=== PATIENT | female | born 1950 | race Caucasian/White ===

== ENCOUNTER 2023-06-30 14:32 | Outpatient (CLI) | payer MEDICARE, OTHER, SELFPAY | END 2023-06-30 23:59 | LOC: LAB.DROPOF 14:33 | PROVIDERS: PCP Family Medicine; Visit Provider Internal Medicine Pulmonary Disease | DX: R84.5 Abnormal microbiological findings in specimens from respiratory organs and thorax (principal); B96.89 Other specified bacterial agents as the cause of diseases classified elsewhere | CPT/HCPCS: 87070; 87205 ==

== ENCOUNTER 2023-07-10 06:56 | Outpatient (CLI) | payer MEDICARE, OTHER, SELFPAY ==
--- NOTE | 2023-07-10 07:08 | CT_ITS ---
FINAL REPORT TECHNIQUE: Axial imaging of the chest was obtained without contrast. This study was performed with techniques to keep radiation doses as low as reasonably achievable, (ALARA). Individualized dose reduction techniques using automated exposure control or adjustment of mA and/or kV according to the patient's size were employed. CLINICAL HISTORY: Abnormal CXR/recurrent PNM COMPARISON: None FINDINGS: There is moderate bilateral axillary adenopathy present, with nodes measuring up to 1.7 cm in size. There is moderate mediastinal adenopathy as well, with a elba conglomerate in the subcarinal region which measures 3.4 x 2.8 cm in size. The heart size is normal. There is no pericardial or pleural effusion. There is abnormal peribronchial thickening bilaterally, possibly secondary to chronic bronchitis. There is mucous plugging in the lower lobe bronchi, more prominent on the right side than the left. Limited images of the upper abdomen do not completely image the spleen, however the spleen appears to be enlarged. IMPRESSION: Bilateral axillary adenopathy and mediastinal adenopathy as described. The spleen also appears somewhat enlarged although it is not visualized in its entirety. This may be reactive or neoplastic, and would consider PET/CT for further evaluation as clinically indicated. There is abnormal peribronchial wall thickening with mucous plugging in the lower lobe bronchi, worse on the right than on the left. This may be secondary to chronic bronchitis. Reviewed, Interpreted and Dictated by Tejas Lackey MD Transcribed by Trena Styles Authenticated and [facility]
[2023-07-10 11:36] LABS: C-Reactive Protein 11.7 mg/L (0-4)
[2023-07-13 15:08] LABS: Aspergillus flavus Negative (Neg:<1:1); Aspergillus fumigatus Negative (Neg:<1:1); Aspergillus niger Negative (Neg:<1:1); Blastomyces Antibody Negative (Neg:<1:1); Histoplasma Antibody Quant Negative (Neg:<1:1)
== END 2023-07-10 23:59 | disposition home or self-care (01) ==
PROVIDERS: PCP Family Medicine; Visit Provider Internal Medicine Pulmonary Disease
DX: R91.8 Other nonspecific abnormal finding of lung field (principal); J84.10 Pulmonary fibrosis, unspecified; R91.1 Solitary pulmonary nodule; R06.09 Other forms of dyspnea
CPT/HCPCS: 36415; 71250; 86140; 86606; 86612; 86698

== ENCOUNTER 2023-07-12 10:58 | Outpatient (CLI) | payer MEDICARE, OTHER, SELFPAY | END 2023-07-12 23:59 | disposition home or self-care (01) | LOC: LAB 11:00 | PROVIDERS: PCP Family Medicine; Visit Provider Internal Medicine Pulmonary Disease | DX: R93.89 Abnormal findings on diagnostic imaging of other specified body structures (principal); R91.8 Other nonspecific abnormal finding of lung field; J18.9 Pneumonia, unspecified organism | CPT/HCPCS: 87116; 87186; 87206; 87220 ==

== ENCOUNTER 2023-07-21 08:37 | Day surgery (SDC) | payer MEDICARE, OTHER, SELFPAY ==
[2023-07-18 10:36] VITALS: BMI 28.9
[2023-07-21] VITALS (10 sets, daily range): BP systolic 93–121; BP diastolic 55–86; PULSE 91–112; RESP 16–19; TEMP 36.2–43; O2SAT 90–97; BMI 29.8
[2023-07-21] MEDS: LACTATED RINGERS 1000ML 1,000 ML 25 ML IV (09:09)
[2023-07-21 09:17] LABS: POC Glucose,Bedside 142 (70-110)
[2023-07-21 09:26] LABS: Basophils # 0.2 K/mm3 (0-0.2); Basophils % 0.9 % (0.1-2.0); Chloride 109 mmol/L (98-107); Eosinophils # 0.2 K/mm3 (0.0-0.4); Hematocrit 47.6 % (37.0-47.0); Hemoglobin 15.2 g/dL (12.2-16.2); Lymphocytes # 13.3 K/mm3 (0.7-4.5); Lymphocytes % 65.5 % (10-50); Mean Corpuscular HGB Conc 31.9 g/dL (31.8-35.4); Mean Platelet Volume 8.6 fl (7.4-10.4); Monocytes # 0.5 K/mm3 (0.1-1.0); Monocytes % 2.2 % (1.7-9.3); Neutrophils # 6.1 K/mm3 (1.8-7.8); Neutrophils % 30.3 % (37.0-80.0); Platelet Count 124 K/mm3 (142-424); Red Blood Count 5.07 M/mm3 (4.20-5.40); Red Cell Distribution Width 14.8 % (11.5-17.5); Sodium 140 mmol/L (136-145); White Blood Count 20.2 K/mm3 (4.8-10.8)
[2023-07-21 09:27] LABS: Potassium 4.8 mmoL/L (3.5-5.1)
[2023-07-21 09:29] LABS: Blood Urea Nitrogen 29 mg/dl (7-17); Creatinine Clearance Estimated 49 mL/min (50-200); Estimated Glomerular Filt Rate 40 ml/min (>60); GFR (African American) 49 ML/MIN (>60); MANUAL DIFFERENTIAL MANUAL DIFFERENTIAL (MANUAL DIFF)
[2023-07-21 09:30] LABS: Anion Gap 8.8 mEq/L (5-15); Carbon Dioxide 27 mmol/L (22.0-30.0); Glucose 150 mg/dl (74-100)
--- NOTE | 2023-07-21 09:49 | ECG_ITS ---
APPROVED REPORT Exam: Resting ECG HR:90 bpm ECG Measurements Heart Rate 90 AXES SC 193 P 75 QRSd 80 QRS 92 QT 337 T 58 QTc 385 Conclusion SINUS RHYTHM BORDERLINE RIGHT AXIS DEVIATION [QRS AXIS > 90] BORDERLINE ECG UNCONFIRMED REPORT Electronically signed by : Vahid Cardenas MD 07/22/2023 20:38:09
--- NOTE | 2023-07-21 10:28 | P.PNANES_ITS ---
[facility] Disclaimer: The information contained in this section may have been updated after the patient was seen, as this information can be updated by other users. Medical History (Updated 07/21/23 @ 08:53 by Prachi Wiggins RN) CLL (chronic lymphocytic leukemia) Multiple lung nodules on CT Abnormal screening CT of chest Wheezing on both sides of chest Chronic cough Surgical History History of surgery on upper extremity History of tonsillectomy History of hysterectomy Family History Other Diabetes Hypertension Social History Smoking Status: Never smoker alcohol intake: current substance use type: denies use current occupational status: retired Travel in the last 8 weeks: Inside the [facility] Anesthesia Checklist Patient Identification Patient Identification: Arm Band and Family Structural Data Admitted From: Home Planned Operative Procedure/s: Bronchoscopy with Transbronchial Biopsy + EBUS Consent for Planned Operative Procedure(s) Verified: Yes Verified Documents: Surgical Consent and History and Physical NPO Status Verified Time NPO: 00:00 Additional verifications Anesthesia Reactions: No Hx Blood Transfusions: No Blood Transfusion Reaction: No Airway Assessment Mallampati Score:: Class II C-Spine Mobility Assessed: Yes TMJ Mobility Assessed: Yes Dentition: Good Dentition Neurological Assessment Level of Consciousness: Awake and Alert Anesthesia Plan Anesthesia Risk discussed: Yes Anesthesia Plan: Verified ASA Class: III Anesthesia Type: General
[2023-07-21 11:17] LABS: Eosinophils % 1 % (0-3); Lymphocytes % 59 % (10-50); Monocytes % 5 % (2-9); Neutrophils % 30 % (42-76); Total Cells Counted 100
[2023-07-21 11:19] LABS: Platelet Estimate Slight Decrease; RBC Morphology Normal
--- NOTE | 2023-07-21 11:33 | EXP.ANES.I ---
[facility] Anesthesia Record Part I Anesthesia Record I Intake, IV Amount: 1,000 Hydration: Adequate Estimated blood loss (mL): 0 Urine output (mL): 0 Blood Products used (#): none Blood Pressure: 107/63 SaO2: 93 Pulse Rate: 100 Airway Patency: Patent Respiratory Rate: 16 Temperature: 97.3 F Patient is:: Drowsy and Stable Stable to PACU at:: 11:30
--- NOTE | 2023-07-21 11:37 | XR_ITS ---
FINAL REPORT TECHNIQUE: Single view chest CLINICAL HISTORY: post bronch COMPARISON: 07/10/2023 FINDINGS: A single view of the chest was obtained. The heart and mediastinum are within normal limits. There are vague bilateral opacities which represent atelectasis or pneumonia. Upper lobes are clear. There is no pneumothorax. Osseous structures are unremarkable. IMPRESSION: Vague bilateral opacities which represent atelectasis or pneumonia. No pneumothorax post bronchoscopy. Reviewed, Interpreted and Dictated by Ayaka Ward MD Transcribed by Padma Mendoza Authenticated and [facility]
[2023-07-21 11:40] LABS: POC Glucose,Bedside 181 (70-110)
--- NOTE | 2023-07-21 12:41 | EXP.BRONCH.N ---
Procedure: Date: 07/21/23 Patient Date of :: 1950 Procedure Performed:: Bronchoscopy airway examination bronchoalveolar lavage transbronchial lung biopsy, endobronchial ultrasound-guided fine-needle aspiration of lymph node: Indications:: Atypical pneumonia and lymphadenopathy Performing Provider:: Dilia Finley MD Referring Provider:: Dr: Pankaj Arita Sedation:: General anesthesia Procedure:: Bronchoscopy airway examination bronchoalveolar lavage transbronchial lung biopsy, endobronchial ultrasound-guided fine-needle aspiration of lymph node: A clean EBUS bronchoscopy was advanced the ET tube and lymph node surveillance was performed. Patient noted to have lymphadenopathy at station 7 and station 10 L. A total of 4 passes were performed at station 10L and the lymph node sample was sent in CytoLyt for cytopathologic examination. At station 7, 5 passes were performed and the resultant sample was sent in CytoLyt for cytopathologic examination. Four additional passes were also performed, 2 passes were sent in [place] medium for flocytometry examination examination and the other 2 samples were send separately in two normal saline bottles for AFB, fungal and bacterial stain cultures. EBUS bronchoscopy was retracted and a clean therapeutic bronchoscopy was advanced the ET tube. Airways appeared diffusely inflamed and swollen. Copious amount of mucoid secretions were noted. No active bleeding/mucous plugging/airway obstruction noted. Bronchoalveolar lavage was performed in the LEFT LOWER LOBE with instillation of 60 cc normal saline with return of 30 cc of blood tinged back. BAL fluid was sent for cell count and differential along with bacterial fungal and AFB stain and cultures. Bronchoalveolar lavage was performed in the RIGHT LOWER LOBE with instillation of 60 cc normal saline with return of 25 cc of blood tinged back. BAL fluid was sent for bacterial fungal and AFB stain and cultures. Transbronchial biopsy was performed in the RIGHT LOWER LOBE with a total of 7 biopsies performed, 5 biopsy specimens were sent in formalin for cytopathologic examination. The other 2 biopsy samples, were sent one each in two separate normal saline specimen cups for bacterial fungal and AFB stain cultures. Special request was also made for the pathologist to evaluate for AFB and fungal organisms on the cytopathologic examination. Patient tolerated the procedure with no immediate acute complications. We will follow the patient in pulmonary clinic in 7 to 10 days. Findings:: Please see the procedure note Recommendations:: Postoperative bronchoscopy instructions. Follow in pulmonary clinic in 5 days postprocedure Complications:: No acute immediate complication Estimated blood obtained (mL): 10
[2023-07-21] MEDS: IPRATROPIUM/ALBUTEROL 3 ML NEB IH (12:55)
--- NOTE | 2023-07-25 13:45 | EXP.ANES.II ---
[facility] Anesthesia Record Part II Anesthesia Record Part II Discharge Time: 12:00 Destination: Surgical Day Care (OP Surgery) PACU nurse assessment reviewed?: Yes Patient Condition:: Good Anesthesia Complications:: None Swallowing reflex intact?: Yes Airway Patency: Patent Cyanosis?: No Blood Pressure: 117/86 SaO2: 95 Respiratory Rate: 19 Pulse Rate: 104 Temperature: 97.1 F Mental Status: Alert & Oriented Pain level:: 0 Nausea and/or vomitting:: None Intake, IV Amount: 0 Hydration: Adequate
[2023-07-25 13:47] VITALS: BP 117/86; PULSE 104; RESP 19; TEMP 36.2; O2SAT 95
== END 2023-07-21 13:00 | disposition home or self-care (01) ==
PROVIDERS: PCP Family Medicine; Visit Provider Internal Medicine Pulmonary Disease
PROC: (CPT 31624; principal; 2023-07-21 10:00)
DX: R05.3 Chronic cough (principal); C91.10 Chronic lymphocytic leukemia of B-cell type not having achieved remission; J18.9 Pneumonia, unspecified organism; Z79.84 Long term (current) use of oral hypoglycemic drugs; Z79.85 Long-term (current) use of injectable non-insulin antidiabetic drugs; J84.10 Pulmonary fibrosis, unspecified; E11.9 Type 2 diabetes mellitus without complications; R91.8 Other nonspecific abnormal finding of lung field; Z79.899 Other long term (current) drug therapy
CPT/HCPCS: 31624; 31628; 31652; 71045; 76000; 80048; 82962; 85007; 85025; 87070; 87102; 87116; 87186; 87205; 87206; 89051; 93005; J3490; J2405

== ENCOUNTER 2023-10-17 12:38 | Outpatient (CLI) | payer MEDICARE, OTHER, SELFPAY ==
--- OUTSIDE RECORDS SUMMARY | 2023-10-17 12:39 | XMS_ITS | Continuity of Care Document ---
Author Organization [facility] Phone Care Team Providers Care Track Announcer Name Role Phone KIM SARKAR Primary Attending KIM SARKAR Admitting KIM SARKAR Primary Care KIM SARKAR Unavailable RESULTS Patient: DOMINGO Rg Date of : May [birth year] LABORATORY RESULTS Information is not available LABORATORY NARRATIVE RESULTS Information is not available RADIOLOGY RESULTS ORDER 100: CHEST PA AND LAT (LOINC: [id number]) ORDER DATE: April 25, 2023 2:02:[address] [facility] PERFORMING LAB: [address] [id number] Final Result Date: April 25, 2023 2:15:17 PM [address] [place] [address] Name: CRISTEL L[address] Exam Date: 04/25/2023 : 1950 Age 72 years Gender: F Physician: KIM SARKAR Facility: [facility] Facility HSV: Outpatient Exam: CHEST PA & LAT CHEST, 2 views HISTORY: Cough COMPARISON: October 08, 2022 FINDINGS: The lungs are clear. There is evidence of calcified granulomatous disease. There is no evidence of effusion. The mediastinum has a normal appearance. The cardiac silhouette is unremarkable. No acute osseous changes. IMPRESSION: No acute cardiopulmonary process. Dictated By: DONNIE NORMAN Transcribed By: DONNIE NORMAN Transcribed On: 04/25/2023 9:15 AM Electronically signed by: DONNIE NORMAN 04/25/2023 Thank you for referring [facility] to [facility]. Legally authenticated by POPE DONNIE Nelson DO 2023-04-25 09:15:17 PATHOLOGY NARRATIVE RESULTS Information is not available MICROBIOLOGY RESULTS No Micro Labs/Results Exist for Patient BLOOD ADMIN RESULTS Information is not available MEDICATIONS HOME MEDICATIONS Status RXNORM Medication Dose Route Frequency Dates Comments R eported By Updated By Drug Treatment Unknown DISCHARGE MEDICATIONS Status RXNORM Medication Dose Route Frequency Dates Comments Physic adin Updated By No Discharge Medication Info rmation Available INPATIENT MEDICATIONS Status RXNORM Medication Dose Route Frequency Rate Quantity Dates Comments Physician Updated By No Inpatient Medication Info rmation Available SOCIAL HISTORY SOCIAL HISTORY SNOMED-CT Social History Element Description Effective Dates Offered Cessation Comment UpdatedBy [id number] Smoking Status Unknown If Ever Smoked SOCIAL HISTORY - Gender Sex: Female SOCIAL HISTORY - Sexual Behavior Sexual Orientation Gender Identity SNOMED-CT Description SNO MED -CT Description Activity Level No of Partners Partner Type UpdatedBy Information is not available HEALTH CONCERNS Problems Concern Status Health Concern problem infor mation not available. Smoking Status Status Years Used Consumed packs p er day Health Concern smoking histo ry information not available. Family History Concern Status Health Concern family histor y information not available. ENCOUNTERS ENCOUNTER INFORMATION Reason for Visit COUGH Admission April 25, 2023 1:52:[address] [address] Discharge April 25, 2023 1:52:[address] [facility] DISCHARGED TO HOME OR SELF CARE ENCOUNTER DIAGNOSES Notes information is not mindy ilable. Code System Diagnosis Onset Date Diagnosis information is not available. ABSTRACT DIAGNOSES Code System Diagnosis Updated By R05.9 ICD10 COUGH, UNSPECIFIED [id number] o n April 28, 2023 3:33:[address] [facility] R05.9 ICD10 COUGH, UNSPECIFIED [id number] o n April 28, 2023 3:33:[address] [facility] R06.2 ICD10 WHEEZING [id number] on 2023 3:33:[address] [facility] CARE TEAM Care Track Announcer Role KIM SARKAR Primary Attending KIM SARKAR Admitting KIM SARKAR Primary Care KIM SARKAR Referring CARE TEAM CARE floor grinder Role on Team Status Start Date End Date Update d By ANTONINA ARZATE PCP normal April 25, 2023 5:00:[address] [facility] April 25, 2023 5:00:[address] [facility] [id number] on April 25, 2023 1:53:[address] [facility] ANTONINA ARZATE Referring normal April 25, 2023 5:00:[address] [facility] April 25, 2023 5:00:[address] [facility] [id number] on April 25, 2023 1:53:[address] [facility] ANTONINA ARZATE Attending normal April 25, 2023 5:00:[address] [facility] April 25, 2023 5:00:[address] [facility] [id number] on April 25, 2023 1:53:[address] [facility] ANTONINA ARZATE Admitting normal April 25, 2023 5:00:[address] [facility] April 25, 2023 5:00:[address] [facility] [id number] on April 25, 2023 1:53:[address] [facility]
--- OUTSIDE RECORDS SUMMARY | 2023-10-17 12:39 | XMS_ITS | Continuity of Care Document ---
Author Organization [facility] Phone Care Team Providers Care Emission Specialist Name Role Phone KIM SARKAR Primary Attending KIM SARKAR Admitting KIM SARKAR Primary Care KIM SARKAR Unavailable TREATMENT PLAN DISCHARGE MEDICATIONS Status RXNORM Medication Dose Route Frequency Dates Comments U pdated By Patient discharge medication information is not available. PATIENT OPEN ORDERS Code System Description Frequency Occurrences Priority [place] [id number] [facility] Chest X-ray PA and lateral ONE TIME 0 Routine April 25, 2023 2:01:00 PM [facility] ANTONINA ALVAREZ MD [id number] on April 25, 2023 2:11:00 PM [facility] SCHEDULED PROCEDURES Code System Description Status Scheduled Date Upd ated By Patient scheduled procedure information is not available. MEDICATIONS HOME MEDICATIONS Status RXNORM Medication Dose [...] Description Effective Dates Offered Cessation Comment UpdatedBy [id number] Smoking Status Unknown If Ever Smoked SOCIAL [...] COUGH Admission April 25, 2023 1:52:[address] [address] Discharge April 25, 2023 1:52:00 PM [facility] DISCHARGED TO HOME OR SELF CARE ENCOUNTER DIAGNOSES Notes information is not mindy ilable. Code System Diagnosis Onset Date Diagnosis information is not available. ABSTRACT DIAGNOSES Code System Diagnosis Updated By Abstract Diagnosis informati on is not available. CARE TEAM Care Emission Specialist Role KIM SARKAR Primary Attending KIM SARKAR Admitting KIM SARKAR Primary Care KIM SARKAR Referring CARE TEAM CARE nurse supervisor Role on Team Status Start Date End Date Update d By ANTONINA ARZATE PCP normal April 25, 2023 5:00:00 AM [facility] April 25, 2023 1:52:00 PM [facility] [id number] on April 25, 2023 1:53:01 PM [facility] ANTONINA ARZATE Referring normal April 25, 2023 5:00:00 AM [facility] April 25, 2023 1:52:00 PM [facility] [id number] on April 25, 2023 1:53:01 PM [facility] ANTONINA ARZATE Attending normal April 25, 2023 5:00:00 AM [facility] April 25, 2023 1:52:00 PM [facility] [id number] on April 25, 2023 1:53:01 PM [facility] ANTONINA ARZATE Admitting normal April 25, 2023 5:00:00 AM [facility] April 25, 2023 1:52:00 PM [facility] [id number] on April 25, 2023 1:53:01 PM [facility]
[2023-10-17 13:29] LABS: Basophils # 0.1 K/mm3 (0-0.2); Basophils % 0.6 % (0.1-2.0); Eosinophils # 0.2 K/mm3 (0.0-0.4); Hematocrit 48.4 % (37.0-47.0); Hemoglobin 15.5 g/dL (12.2-16.2); Lymphocytes # 11.6 K/mm3 (0.7-4.5); Lymphocytes % 59.2 % (10-50); Mean Corpuscular Hemoglobin 29.7 pg (27.0-31.2); Mean Corpuscular Volume 92.9 fl (81-99); Mean Platelet Volume 7.6 fl (7.4-10.4); Monocytes # 0.5 K/mm3 (0.1-1.0); Monocytes % 2.8 % (1.7-9.3); Neutrophils # 7.2 K/mm3 (1.8-7.8); Neutrophils % 36.5 % (37.0-80.0); Platelet Count 138 K/mm3 (142-424); Red Blood Count 5.21 M/mm3 (4.20-5.40); Red Cell Distribution Width 15.3 % (11.5-17.5); White Blood Count 19.6 K/mm3 (4.8-10.8)
[2023-10-17 13:36] LABS: MANUAL DIFFERENTIAL MANUAL DIFFERENTIAL (MANUAL DIFF)
--- NOTE | 2023-10-17 14:04 | CT_ITS ---
FINAL REPORT TECHNIQUE: Axial CT without contrast CLINICAL HISTORY: 3-month follow-up LUNG NODULE, SOA COMPARISON: 07/11/2023 FINDINGS: CT CHEST WITHOUT CONTRAST Subtle fine nodular densities are seen, greatest in the lung bases which could represent bronchiolitis including atypical pneumonia such as TB or fungal disease or even metastatic disease. No dominant lung mass or consolidation is identified. There is bilateral axillary adenopathy. Largest right axillary node measures 15 x 9 mm, previously measured 16 x 11 mm. Largest left axillary node measures 12 x 6 mm, previously measured 13 x 9 mm. There is extensive mediastinal adenopathy. A right upper posterior mediastinal node measures up to 17 mm, unchanged. There is confluent subcarinal adenopathy measuring 40 x 24 mm, previously measured 34 x 23 mm. Other extensive mediastinal adenopathy is grossly similar. Limited images of the upper abdomen reveals portacaval adenopathy measuring 21 x 16 mm, previously measured 24 x 15 mm. There is minimal cholelithiasis. There is moderate splenomegaly. Spleen measures up to 14.6 cm, previously measured 15 cm. IMPRESSION: Widespread adenopathy and splenomegaly most of which shows mild to minimal improvement although subcarinal adenopathy is slightly worse. This may be seen with lymphoproliferative disorder or even sarcoidosis. Subtle fine nodular nodules in the lungs, greatest in the lung bases which could be infectious/inflammatory or metastatic. This is new since previous. This study was performed using automated techniques to achieve radiation exposure as low as reasonably achievable Reviewed, Interpreted and Dictated by Ayaka Ward MD Transcribed by Tennille Scherer Authenticated and [facility]
[2023-10-17 15:19] LABS: Lymphocytes % 70 % (10-50); Monocytes % 2 % (2-9); Neutrophils % 28 % (42-76); RBC Morphology Normal; Total Cells Counted 100
[2023-10-17 15:20] LABS: Platelet Estimate Slight Decrease
[2023-10-17] MEDS: ALBUTEROL 0.083% 2.5 MG/3 ML NEB IH (15:22)
--- NOTE | 2023-10-17 15:22 | PC.NURSE ---
PFT and 6 Minute walk test completed without incident. Albuterol 0.083% given via HHN, per written protocol, Pt tolerated tx well.
[2023-10-22 12:40] LABS: Strongyloides IgG Antibody Negative (Negative)
[2023-10-29 16:13] LABS: D001-IgE D pteronyssinus <0.10 kU/L (Class 0); D002-IgE D farinae <0.10 kU/L (Class 0); E001-IgE Cat Dander <0.10 kU/L (Class 0); E005-IgE Dog Dander <0.10 kU/L (Class 0); E072-IgE Mouse Urine <0.10 kU/L (Class 0); G002-IgE Bermuda Grass <0.10 kU/L (Class 0); G006-IgE Timothy Grass <0.10 kU/L (Class 0); I006-IgE Cockroach, German <0.10 kU/L (Class 0); Immunoglobulin E, Total <2 IU/mL (6-495); M002-IgE Cladosporium herbarum <0.10 kU/L (Class 0); M003-IgE Aspergillus fumigatus <0.10 kU/L (Class 0); M006-IgE Alternaria alternata <0.10 kU/L (Class 0); T001-IgE Maple/Box Elder <0.10 kU/L (Class 0); T006-IgE Cedar, Mountain <0.10 kU/L (Class 0); T007-IgE Oak, White <0.10 kU/L (Class 0); T008-IgE Elm, American <0.10 kU/L (Class 0); W001-IgE Ragweed, Short <0.10 kU/L (Class 0); W014-IgE Pigweed, Common <0.10 kU/L (Class 0)
[2023-11-05 13:27] LABS: Antinuclear Antibodies (ANA) Negative
== END 2023-10-17 23:59 | disposition home or self-care (01) ==
LOC: RT 12:38
PROVIDERS: PCP Family Medicine; Visit Provider Internal Medicine Pulmonary Disease
DX: R06.09 Other forms of dyspnea (principal); R91.8 Other nonspecific abnormal finding of lung field; J84.9 Interstitial pulmonary disease, unspecified; D72.10 Eosinophilia, unspecified; J30.9 Allergic rhinitis, unspecified
CPT/HCPCS: 36415; 71250; 82785; 85007; 85025; 85027; 86003; 86038; 86225; 86235; 86682; 94060; 94618; 94726; 94729; J7613